=== PATIENT | male | born 1960 | race Two or more races ===

== ENCOUNTER 2022-06-11 00:29 | Emergency (ER) | payer BC ==
[~2022-06-11] VITALS: Ht 185.4 cm; Wt 124.7 kg
[2022-06-11] MEDS ORDERED: ONDANSETRON HCL 4 MG ORAL DISINTEGRATING TAB ONE (00:59)
[2022-06-11] MEDS ORDERED: NICARDIPINE 20MG/200ML PREMIX 200 ML ONE (02:14)
[2022-06-11] MEDS ORDERED: DIAZEPAM INJ 5 MG/ML 2 ML ONE (02:50)
[2022-06-11] MEDS ORDERED: NICARDIPINE 20MG/200ML PREMIX 200 ML IV SCH (03:00)
[2022-06-11] MEDS ORDERED: DIAZEPAM INJ 5 MG/ML 2 ML IV ONE ×2 (03:00)
== END 2022-06-11 03:20 | disposition other institution (70) ==
LOC: FSED 00:36
DX: R51.9 Headache, unspecified (principal); I61.5 Nontraumatic intracerebral hemorrhage, intraventricular; I16.1 Hypertensive emergency; E11.65 Type 2 diabetes mellitus with hyperglycemia; R11.2 Nausea with vomiting, unspecified; E66.01 Morbid (severe) obesity due to excess calories; Z20.822 Contact with and (suspected) exposure to COVID-19
CPT/HCPCS: 0223U; 36415; 70450; 87400; 93005; 99284; J3360; Q0162; U0002